=== PATIENT | male | born 1950 | race Hispanic/Latino ===

== ENCOUNTER 2022-04-26 06:14 | Day surgery (SDC) | payer OTHER, MEDICARE ==
[2022-04-21 12:09] LABS: BASOPHILS % (AUTO) 0.4 % (0.0-5.0); EOSINOPHILS % (AUTO) 3.3 % (0.0-8.0); LYMPHOCYTES % (AUTO) 31.8 % (21.0-51.0); MEAN CORPUSCULAR HEMOGLOBIN 31.3 pg (27.0-33.0); MEAN CORPUSCULAR HGB CONC 31.9 g/dL (32.0-36.0); MEAN CORPUSCULAR VOLUME 98.1 fL (79-99); MONOCYTES % (AUTO) 9.2 % (3.0-13.0); NEUTROPHILS % (AUTO) 54.9 % (40.0-77.0); PLATELET COUNT (AUTO) 111 K/uL (130-400); RED BLOOD CELL COUNT(AUTO) 3.77 MIL/uL (4.50-6.20); RED CELL DISTRIBUTION WIDTH 13.3 % (11.0-15.5); WHITE BLOOD COUNT (AUTO) 4.9 K/uL (4.8-10.8)
[2022-04-21 12:15] LABS: POTASSIUM 4.2 mmol/L (3.5-5.1)
[2022-04-23 12:13] VITALS: BP 152/73
[2022-04-26] VITALS (17 sets, daily range): BP systolic 136–165; BP diastolic 59–80
[~2022-04-26] VITALS: Ht 170.2 cm; Wt 88.5 kg
[~2022-04-26 06:14] MED LIST: ACET-66 PO; ATOR40TA71 PO; BUPIVACAINE/PF 0.5% 30ML VIAL INJ ONE; CEFAZOLIN SODIUM 1 GM VIAL IVPB SCH; CEFAZOLIN SODIUM 2 GM VIAL IVPB ONE; HYDR12.530 PO; INSU100V12 SQ; LATA2.5D14 OU; LOSA100T58 PO; METF-444 PO; TIMO5DRO39 OU
[2022-04-26] MEDS ORDERED: BUPIVACAINE/PF 0.25% 30ML VIAL IJ ONE (06:21)
[2022-04-26] MEDS ORDERED: 0.9%NACL 1000ML 1,000 ML IV ONE (06:31)
[2022-04-26] MEDS ORDERED: PRED5DRO25 OP (07:05)
[2022-04-26] MEDS ORDERED: METF-527 PO (07:05)
[2022-04-26] MEDS ORDERED: INSU100I21 SQ (07:05)
[2022-04-26] MEDS ORDERED: PIOG30TA70 PO (07:05)
[2022-04-26] MEDS ORDERED: ATOR10 PO (07:05)
[2022-04-26] MEDS ORDERED: VALS80TA30 PO (07:05)
[2022-04-26] MEDS ORDERED: FENTANYL CITRATE PF 50 MCG/1 ML 2ML VIAL ONE (07:59)
[2022-04-26] MEDS ORDERED: MIDAZOLAM HCL 1 MG/ML 2ML VIAL ONE (07:59)
[2022-04-26] MEDS ORDERED: PROPOFOL 10 MG/ML 20ML VIAL IV ONE (07:59)
[2022-04-26] MEDS ORDERED: SUCCINYLCHOLINE 200MG/10ML SYR ONE (07:59)
[2022-04-26] MEDS ORDERED: ROCURONIUM 10MG/1ML SYR 10 MG/ML ML ONE (08:08)
[2022-04-26] MEDS ORDERED: CEFAZOLIN SODIUM 2 GM VIAL IVPB ONE (08:26)
[2022-04-26] MEDS ORDERED: BUPIVACAINE/PF 0.5% 30ML VIAL INJ ONE (08:26)
[2022-04-26] MEDS ORDERED: EPHEDRINE SULFATE 50 MG/ML AMPULE ONE (08:50)
[2022-04-26] MEDS ORDERED: KETOROLAC 30MG VIAL (30MG/ML) ONE (09:26)
[2022-04-26] MEDS ORDERED: MEPERIDINE-PF 25 MG/ML SYG ONE (09:36)
== END 2022-04-26 11:00 | disposition home or self-care (01) ==
LOC: DAH 06:14
PROVIDERS: ATTEND Surgery
DX: L72.3 Sebaceous cyst (principal); Z20.822 Contact with and (suspected) exposure to COVID-19; I10 Essential (primary) hypertension; E11.9 Type 2 diabetes mellitus without complications; E66.9 Obesity, unspecified; Z98.890 Other specified postprocedural states; Z79.84 Long term (current) use of oral hypoglycemic drugs; Z79.899 Other long term (current) drug therapy; Z87.891 Personal history of nicotine dependence; Z68.30 Body mass index [BMI] 30.0-30.9, adult
CPT/HCPCS: 71045; 87426; 80048; 85025; 36415; 93005; 11406; 82948 ×2; A6260; A4663; J7030 ×2; A4452; J3010; J0690 ×2; J0330; J3490 ×3; J2250; J2704; J1885; J2175; A5120; A4215; A4223; A4222; A4221; A4600